=== PATIENT | female | born 1975 | race Two or more races ===

== ENCOUNTER 2018-07-12 06:55 | Day surgery (SDC) | payer BC ==
[2018-07-12] MEDS ORDERED: Lidocaine 1%/Sod Bicarbonate in NS 8.4% 1 ML Syringe IDERM PRN (07:00)
[2018-07-12] MEDS ORDERED: Sodium Chloride 0.9% 10 ML Syringe FLUSH PRN (07:00)
[2018-07-12] MEDS ORDERED: Lidocaine 1% with EPINEPHrine 1:100,000 20 ML MDV ONE (07:04)
[2018-07-12] MEDS ORDERED: Propofol 200 MG/20 ML SDV ONE (07:05)
[2018-07-12] MEDS ORDERED: Ketorolac 30 MG/ML SDV ONE (07:05)
[2018-07-12] MEDS ORDERED: HYDROmorphone 0.5 MG/0.5 ML Syringe ONE (07:05)
[2018-07-12] MEDS ORDERED: Rocuronium 50 MG/5 ML Vial ONE (07:05)
[2018-07-12] MEDS ORDERED: fentaNYL 250 MCG/5 ML SDV ONE (07:05)
[2018-07-12] MEDS ORDERED: Bupivacaine 0.5% 30 ML SDV ONE (07:05)
[2018-07-12] MEDS ORDERED: Midazolam 1 MG/ML 2 ML SDV ONE (07:05)
[2018-07-12] MEDS ORDERED: Ondansetron 4 MG/2 ML SDV ONE (07:05)
[2018-07-12] MEDS: Lactated Ringers 1,000 ML IV SCH ×2 (07:20→12:56)
--- NOTE | 2018-07-12 07:35 | PCM.PREANE ---
Preanesthetic Assessment - Anesthesia/Transfusion/Family Hx Anesthesia History: Prior Anesthesia Without Reaction Family History of Anesthesia Reaction: No Transfusion History: No Prior Transfusion(s) - Review of Systems General: No Symptoms Pulmonary: No Symptoms Cardiovascular: No Symptoms Gastrointestinal: Other (history of gastritis and Hpylori, colitis) Neurological: No Symptoms - Physical Assessment NPO Status Date: 07/11/18 NPO Status Time: 19:00 Pulse: 65 O2 Sat by Pulse Oximetry: 98 Respiratory Rate: 16 Blood Pressure: 113/68 Weight: 69 kg ASA Class: 2 Mental Status: Alert & Oriented x3 Airway Class: Mallampati = 2 Dentition: Reports: Normal Dentition Thyro-Mental Finger Breadths: 3 Mouth Opening Finger Breadths: 3 ROM/Head Extension: Full Lungs: Clear to Auscultation, Normal Respiratory Effort Cardiovascular: Regular Rate, Regular Rhythm - Lab Values: Laboratory Last Values Urine HCG, Qual Negative (NEGATIVE) 07/12/18 07:05 - Allergies Allergies/Adverse Reactions: Allergies Allergy/AdvReac Type Severity Reaction Status Date / Time No Known Allergies Allergy Verified 07/11/18 16:13 - Blood Blood Available: No Product(s) Available: None - Anesthesia Plan Pre-Op Medication Ordered: None - Acknowledgements Anesthesia Type Planned: General Anesthesia Pt an Appropriate Candidate for the Planned Anesthesia: Yes Alternatives and Risks of Anesthesia Discussed w Pt/Guardian: Yes Pt/Guardian Understands and Agrees with Anesthesia Plan: Yes PreAnesthesia Questionnaire - Past Health History Medical/Surgical History: Denies Medical/Surgical History HEENT History: Reports: Impaired Vision Cardiovascular History: Reports: None Respiratory History: Reports: None Gastrointestinal History: Reports: Gastritis, Helicobacter Pylori Genitourinary History: Reports: Other (See Below) Other Genitourinary History: OAB PRESTIDIGITATOR History: Reports: None Musculoskeletal History: Reports: None Neurological History: Reports: None Psychiatric History: Reports: None Hematologic History: Reports: None Immunologic History: Reports: None Oncologic (Cancer) History: Reports: None Dermatologic History: Reports: None - Past Surgical History Head Surgeries/Procedures: Reports: None HEENT Surgical History: Reports: Oral Surgery Cardiovascular Surgical History: Reports: None Respiratory Surgical History: Reports: None GI Surgical History: Reports: Colonoscopy, EGD Female Surgical History: Reports: None Male Surgical History: Reports: None Endocrine Surgical History: Reports: None Neurological Surgical History: Reports: None Musculoskeletal Surgical History: Reports: None Oncologic Surgical History: Reports: None - SUBSTANCE USE Smoking Status *Q: Never Smoker Recreational Drug Use History: No - HOME MEDS Home Medications: Home Meds Ascorbic Acid [Vitamin C] 500 mg PO DAILY 07/11/18 [History] Cholecalciferol (Vitamin D3) [Vitamin D3] 1,000 unit PO DAILY 07/11/18 [History] Ferrous Sulfate [Iron] 325 mg PO DAILY 07/11/18 [History] Ibuprofen 600 mg PO Q6H PRN 07/11/18 [History] Lactobacillus Combination No.4 [Probiotic] 1 cap PO DAILY 07/11/18 [History] Norgestimate-Ethinyl Estradiol [Sprintec 28 Day Tablet] 1 tab PO DAILY 07/11/18 [History] Oxybutynin Chloride 5 mg PO DAILY 07/11/18 [History] Pantoprazole Sodium 40 mg PO DAILY 07/11/18 [History] - CURRENT (IN HOUSE) MEDS Current Meds: Current Medications Lactated Ringer's (Ringers, Lactated) 1,000 mls @ 125 mls/hr IV ASDIRECTED PETE Stop: 07/12/18 23:00 Lidocaine/Sodium Bicarbonate (Buffered Lidocaine 1% In Ns 8.4%) 0.25 ml IDERM ONETIME PRN PRN Reason: Prior to IV Start Stop: 07/12/18 18:00 Sodium Chloride (Saline Flush) 10 ml FLUSH ASDIRECTED PRN PRN Reason: Keep Vein Open Stop: 07/12/18 18:00 Discontinued Medications Bupivacaine HCl (Marcaine 0.5%) Confirm Administered Dose 30 ml .ROUTE .STK-MED ONE Stop: 07/12/18 07:06 Fentanyl (Sublimaze) Confirm Administered Dose 250 mcg .ROUTE .STK-MED ONE Stop: 07/12/18 07:06 Hydromorphone HCl (Dilaudid) Confirm Administered Dose 0.5 mg .ROUTE .STK-MED ONE Stop: 07/12/18 07:06 Ketorolac Tromethamine (Toradol) Confirm Administered Dose 30 mg .ROUTE .STK- MED ONE Stop: 07/12/18 07:06 Lidocaine/Epinephrine (Xylocaine 1% With Epinephrine 1:100,000) Confirm Administered Dose 20 ml .ROUTE .STK-MED ONE Stop: 07/12/18 07:05 Midazolam HCl (Versed 1 Mg/Ml) Confirm Administered Dose 2 mg .ROUTE .STK-MED ONE Stop: 07/12/18 07:06 Ondansetron HCl (Zofran) Confirm Administered Dose 4 mg .ROUTE .STK-MED ONE Stop: 07/12/18 07:06 Propofol (Diprivan 20 Ml) Confirm Administered Dose 200 mg .ROUTE .STK-MED ONE Stop: 07/12/18 07:06 Rocuronium [place] (Zemuron) Confirm Administered Dose 50 mg .ROUTE .STK-MED ONE Stop: 07/12/18 07:06
--- NOTE | 2018-07-12 07:54 | PCM.OPNOTE ---
- General Post-Op/Procedure Note Date of Surgery/Procedure: 07/12/18 Operative Procedure(s): Laparoscopic assisted vaginal hysterectomy. Bilateral salpingectomy Findings: Intraabdominal evaluation showed small cyst on the right ovary. Normal appearance of the left ovary. Normal appearance of the fallopian tubes. Uterus grossly enlarged with intracavitary fibroid. Pre Op Diagnosis: Fibroid uterus. Abnormal uterine bleeding Post-Op Diagnosis: Same Anesthesia Technique: General ET Tube Primary Surgeon: Alison Strickland Secondary Surgeon: Lilibeth Moctezuma Anesthesia Provider: Sujata Nam Reason Plate Glass Installer Was Necessary: Speed, safety of procedure Pathology: Cervix, uterus, fibroid, fallopian tube sent to pathology. Total weight of specimen 3689 grams. Fluid Replacement, Intraop: 1,900 Output, Urine Amount: 285 EBL in mLs: 100 Complications: None Condition: Good Free Text/Narrative:: The risks, benefits, indications, potential complications, and alternatives were explained to the patient and informed consent obtained. The patient was taken to the Operating Room where general anesthesia was induced without complication. The patient was placed in dorsal lithotomy with Charles Stirrups and an exam under anesthesia revealed the findings detailed above. The patient was then prepped and draped in the usual sterile fashion. A sterile bivalve speculum was placed into the vagina and the anterior lip of the cervix was grasped with a single tooth tenaculum and a [employer] uterine manipulator was placed to allow uterine manipulation throughout the procedure. The speculum and single tooth tenaculum were removed from the vagina. A Emmanuel catheter was placed in sterile fashion. Attention was then turned to the patients abdomen where a Veress needle was carefully introduced into the peritoneal cavity while tenting the abdominal wall. Intraperitoneal placement was confirmed by free flow of saline into the abdomen from a syringe open to gravity and with a low intraabdominal pressure with insufflation of C02 gas on low flow. The gas was increased to high flow and a pneumoperitoneum was obtained with C02 gas to a pressure of 15 mm Hg. A 5 mm skin incision was made in a fashion in the umbilical fold and a 5 mm blunt trocar was inserted into the abdomen with direct visualization of the laparoscope through the clear view trocar lens. 5 mm skin incisions were made in both the left and right lower quadrants approximately 10 cm lateral and 3 cm inferior to the umbilicus. 5 mm blunt trocars were inserted into the abdomen under direct visualization with care to avoid the abdominal wall vasculature. A blunt probe and grasper were inserted through the accessory ports and a survey of the abdomen revealed the findings detailed above. The right fallopian tube was elevated with the blunt graspers at the fimbriated end. The right ureter was directly visualized and noted to be below the planned dissection area. The Ligasure was used to grasp, elevate, cauterize and transect the mesosalpingx from the fimbriated end toward the uterus to the level of the round ligament. The round ligament on the right was then elevated, cauterized, and transected with the Ligasure. Hemostasis was noted. Next, the vesicouterine peritoneum was elevated gently with a blunt grasper and the Liagsure was used to dissect the vesicouterine peritoneum to make a bladder flap. Two more small bites along the right side of the uterus were made with the Ligasure to skeletonize the uterine artery. Hemostasis was noted. The exact same procedure was carried out on the left. The CO2 gas was turned off and the laparoscope was removed. Attention was then turned to the vaginal portion of the procedure. A short weighted speculum was placed in the vagina and the cervix was grasped with a single tooth tenaculum. The cervix was injected circumferentially with 10 mL of 1% lidocaine with dilute epinephrine. The cervix was then circumferentially incised with a scalpel. A Raytec was used to bluntly dissect the cervix circumferentially until an avascular plane was obtained. The posterior cul-de- sac was entered sharply without difficulty. A 0-Vicryl pop-off suture was placed at six o'clock to include the posterior vaginal mucosa and posterior peritoneum. This stitch was tagged with a straight clamp to help with vaginal cuff closure at the end of the case. The short weighted speculum was replaced by the long weighted speculum. The uterosacral ligaments were grasped on either side with the Ligasure, cauterized, and transected. Hemostasis was assured. The bladder was dissected off the pubovesical cervical fascia anteriorly with a sponge and blunt dissection. The anteiror cul-de-sac was then entered sharply without difficulty. The cardinal ligaments were then serially clamped on both sides with the Ligasure, cauterized, and transected. The uterine arteries were then clamped, cauterized, and transected. Hemostasis was then noted. The fundus and adnexa were confirmed to be free of any further peritoneal attachments. Given size/bulk of uterus and fibroid it had to be removed in portions. A scalpel was used to excise the cervix and portion of the lower uterine segment. At this point the uterine cavity was seen and the intracavitary fibroid was able to be removed in several portions with sharp dissection. The uterus and fallopian tubes were then decompressed enough to be removed through the vagina. The posterior vaginal mucosa was closed with a running suture of 0 vicryl. The vaginal cuff was closed with a 0-Vicryl in a running locked fashion. Hemostasis was noted. Attention was then again turned to the abdomen. All members of the surgical team changed gloves. The laparoscope was again inserted and the abdomen was again insufflated with CO2. The pedicles were again visualized. Raymundo seal was placed along the vaginal cuff. The patient was taken out of Trendelenberg position. The accessory trocars were removed under direct visualization. The pneumoperitoneum was allowed to escape. The umbilical trocar was removed and lastly the camera was removed from the abdomen under direct visualization to confirm no herniation into the port site. All skin incisions were re- approximated with 4-0 Monocryl and sealed with Dermabond. Hemostasis was noted. A total of 10 cc of 0.25% Marcaine was injected into the subcutaneous tissues surrounding the skin incisions for local anesthesia. All sponge, lap, needle, and instrument counts were correct x 2. The patient tolerated the procedure well and there were no complications. Emmanuel catheter removed prior to moving to the recovery room.
[2018-07-12] MEDS ORDERED: HYDROmorphone 0.5 MG/0.5 ML Syringe IVPUSH PRN (09:13)
[2018-07-12] MEDS ORDERED: fentaNYL 100 MCG/2 ML SDV IVPUSH PRN (09:13)
[2018-07-12] MEDS ORDERED: diphenhydrAMINE 50 MG/ML SDV IVPUSH PRN (09:13)
[2018-07-12] MEDS ORDERED: Ondansetron 4 MG/2 ML SDV IVPUSH PRN (09:13)
[2018-07-12] MEDS ORDERED: ePHEDrine/Normal Saline 25 MG/5 ML Syringe ONE (09:14)
[2018-07-12] MEDS ORDERED: fentaNYL 100 MCG/2 ML SDV ONE (10:11)
[2018-07-12] MEDS ORDERED: Lactated Ringers 1,000 ML ONE (10:45)
--- NOTE | 2018-07-12 10:54 | PCM.POSTAN ---
POST ANESTHESIA ASSESSMENT - MENTAL STATUS Mental Status: Alert, Oriented - VITAL SIGNS Pulse Rate: 87 SaO2: 97 Resp Rate: 13 Blood Pressure: 89/57 Temperature: 36.6 C - RESPIRATORY Respiratory Status: Respiratory Rate WNL, Airway Patent, O2 Saturation Stable, Supplemental Oxygen - CARDIOVASCULAR CV Status: Pulse Rate WNL, Blood Pressure Stable - GASTROINTESTINAL GI Status: No Symptoms - PAIN Pain Score: 0 - POST OP HYDRATION Hydration Status: Adequate & Stable
--- NOTE | 2018-07-12 11:51 | PCM48HPAN ---
Post Anesthesia Note - EVALUATION WITHIN 48HRS OF ANESTHETIC Vital Signs in Normal Range: Yes Patient Participated in Evaluation: Yes Respiratory Function Stable: Yes Airway Patent: Yes Cardiovascular Function Stable: Yes Hydration Status Stable: Yes Pain Control Satisfactory: Yes Nausea and Vomiting Control Satisfactory: Yes Pulse Rate: 87 SaO2: 99 Resp Rate: 13 Temperature: 36.6 C Blood Pressure: 89/57
[2018-07-12] MEDS: Acetaminophen/oxyCODONE 325-5 MG Tab PO PRN ×2 (12:51→13:02)
[2018-07-12 15:24] VITALS: BP 109/79
== END 2018-07-12 15:35 | disposition home or self-care (01) ==
LOC: JD.SDS 06:55
PROVIDERS: ATTEND Obstetrics & Gynecology
DX: D25.9 Leiomyoma of uterus, unspecified (principal); N83.201 Unspecified ovarian cyst, right side; N73.6 Female pelvic peritoneal adhesions (postinfective); N72 Inflammatory disease of cervix uteri; K29.70 Gastritis, unspecified, without bleeding; N32.81 Overactive bladder; Z79.899 Other long term (current) drug therapy
CPT/HCPCS: 36415; 58554; 80048; 81025; 85025; 86850; 86900; 86901; A9270; J1170; J1885; J2250; J2405; J2704; J3010; J3490; J7050; J7120